=== PATIENT | male | born 1990 | race Hispanic/Latino ===

== ENCOUNTER 2019-01-18 12:01 | Emergency (ER) | payer SELFPAY ==
[2019-01-18 12:03] VITALS: BP 121/71; PULSE 76; RESP 17; TEMP 37; O2SAT 97; BMI 31.0
[2019-01-18 14:11] VITALS: RESP 18
--- NOTE | 2019-01-18 14:33 | RAD_ITS ---
STUDY: X-RAY - RIGHT ELBOW REASON FOR EXAM: Male, 29 years old. Pain and swelling TECHNIQUE: 3 view(s) of the elbow. COMPARISON: None. FINDINGS: Normal visualized humerus, radius and ulna. Normal radiocapitellar and ulnotrochlear articulations. Diffuse soft tissue swelling with induration of the soft tissue suggests a cellulitis RAD/Elbow min 3 Views IMPRESSION: Normal x-ray examination of the elbow. Diffuse soft tissue swelling and induration suggestive of cellulitis Electronically Signed: Sudheer Ruggiero MD at 15:03 EDT , Service support ,
[2019-01-18 15:18] LABS: Absolute Lymphocyte Count 2.82 X10^3/uL (0.83-4.51); Absolute Neutrophil Count 8.1 X10^3/uL (2.0-7.7); Basophil# 0.06 X10^3/uL; Basophil% 0.5 % (0-1); Eosinophils% 2.4 % (0-5); Hematocrit 41.9 % (40-54); Hemoglobin 14.1 g/dL (13.0-16.5); Lymphocyte # 2.82 X10^3/ul (4.0); Lymphocyte % 22.7 % (19-41); Mean Corp Hgb Conc 33.7 g/dL (32-36); Mean Corpuscular Hgb 31.8 pg (27.0-32.0); Mean Corpuscular Volume 94.6 fL (80-94); Mean Platelet Vol. 9.3 fl (6.2-12.0); Monocyte% 8.8 % (0-10); NRBC Flagged by Analyzer 0 % (0-5); Neutrophil # 8.11 X10^3/uL (2.7-7.7); Neutrophil % 65.2 % (47-70); Platelet Count 312 K/mm3 (150-450); RBC Distribution Width CV 13.2 % (11.6-14.6); RBC Distribution Width SD 45.6 fl (35.1-43.9); Red Blood Count 4.43 M/mm3 (4.6-6.2); White Blood Count 12.4 K/mm3 (4.4-11.0)
[2019-01-18 15:33] LABS: Anion Gap 5 (5-15); BUN 8 mg/dL (7-18); BUN/Creat Ratio 10.6 RATIO (10-20); Calcium,Total 9.5 mg/dL (8.5-10.1); Chloride 103 mmol/L (98-107); Creatinine, Serum 0.75 mg/dL (0.70-1.30); EST Glomerular Filtration Rate 130 mL/min (>60); Est Glom Filt Rate - Afr Amer 158 mL/min (>60); Estimated Creatinine Clearance 121.69 ml/min; Glucose 106 mg/dL (74-106); Potassium 3.8 mmol/L (3.5-5.1); Sodium Level 136 mmol/L (136-145)
--- NOTE | 2019-01-18 16:51 | NURSING ---
DR BAUTISTA FOR DR BAILEY
--- NOTE | 2019-01-18 17:02 | ED.DCSUM_ITS ---
History of Present Illness Chief Complaint: Cellulitis Narrative: This is a [id number] male presenting with right elbow pain, redness, and swelling. He had a work-related injury several days ago and went to an outside hospital. He was given intramuscular antibiotics and given a prescription for oral antibiotics but he did not fill them. He returned to work this morning where they noticed his right elbow was draining foul-smelling material and they brought him back here. 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 He declined professional interpretation services. He denies fever or previous similar symptoms. He does not believe there is a chance of foreign body. Past Medical History - Allergies and Home Meds Allergies/Adverse Reactions: Allergies No Known Allergies Allergy (Verified 01/18/19 12:03) Primary Care Physician: Care Physician,No Primary [Primary Care Provider] - Smoking Status: Current some day smoker Review of Systems General: Denies: Chills, Fever, Sweats Eyes: Denies: Visual changes - bilaterally, Diplopia ENT: Denies: Rhinorrhea, Sore throat Cardiovascular: Denies: Chest pain, Palpitations Respiratory: Denies: Dyspnea, Cough, Dyspnea on exertion Gastrointestinal: Denies: Abdominal pain, Nausea, Vomiting, Diarrhea, Melena, Hematochezia Genitourinary: Denies: Dysuria, Hematuria, Frequency Musculoskeletal: Denies: Back pain, Extremity Pain Skin: Reports: Rash, Abscess, Wounds Neurological: Denies: Headache, Weakness, Numbness Physical Exam Vital Signs/Narrative: Vital Signs Resp 01/18/19 14:11 18 General: Well nourished, Well developed, No Acute Distress Head: Normocephalic, Atraumatic Eyes: Perrl, EOMI ENT: Moist mucous membranes, No rhinorrhea Neck: Supple, Nontender Cardiovascular: Regular rate, Regular rhythm, No murmurs Respiratory: No distress, CTA bilaterally, Chest nontender Abdomen: Soft, Nontender, Nondistended, Normal bowel sounds Back: Nontender, Normal Inspection Extremities: Nontender, No edema Skin: Normal color, Rash, - - There is significant erythema and warmth on his right elbow posteriorly into his midshaft forearm. He is somewhat indurated proximally. There is an open area on the back of the elbow that is draining purulent material. There are no streaks of lymphangitis. He has no pain with range of motion at the elbow. Neurological: Alert, Oriented x3, Cranial nerves II-XII grossly intact, Normal Strength, Normal Sensation Psychological: Normal affect, Normal Mood Diagnostic/Tx/Re-eval - Medical Decision Making He appears to have a fairly significant cellulitis but also appears to have an abscess. It appears to be superficial however and does not appear to involve the joint or the olecranon bursa. I obtained verbal informed consent and written and informed consent and performed a bedside incision and drainage using 10 cc of lidocaine without epinephrine locally infiltrated as a field block and then making a 2 cm x 3 cm cruciate incision. I drained approximately 10 cc of foul-smelling purulent material and then irrigated the wound cavity. I then placed approximately 5 cm of quarter inch packing. He tolerated it well. No immediate complications. He has a slight leukocytosis on his laboratory studies but otherwise they are unremarkable. He was given intravenous clindamycin and had no rapid progression of the cellulitis to suggest necrotizing fasciitis. Since he has already been given a dose of intramuscular antibiotics and was sent back in here by corporate care, I do feel he meets criteria for admission and IV antibiotics. ED Disposition - Plan for ED Patient: Disposition: Acute [facility] Diagnosis: Cellulitis of right elbow, Abscess of right upper extremity Referrals: Care Physician,No Primary [Primary Care Provider] -
[2019-01-18 17:11] VITALS: BP 128/78; PULSE 79; RESP 18; TEMP 36.9; O2SAT 98
--- NOTE | 2019-01-18 17:12 | NURSING ---
[address]ILY RT ELBOW ABSCESS AND CELLULITIS
--- NOTE | 2019-01-18 17:12 | NURSING ---
DR BAUTISTA IN ER
--- NOTE | 2019-01-18 17:26 | NURSING ---
WAITING ON DR AZEVEDO TO TALK TO DR BAUTISTA
--- NOTE | 2019-01-18 17:54 | NURSING ---
CALLED [facility]
--- NOTE | 2019-01-18 18:04 | NURSING ---
FACESHEET FAXED TO [facility]
[2019-01-18 21:10] VITALS: PULSE 78; RESP 18
[2019-01-18 21:15] VITALS: O2SAT 98
[2019-01-18 21:48] LABS: M R Staph aureus DNA By PCR POSITIVE (Negative); Probe Check PASS
== END 2019-01-18 21:18 | disposition short-term general hospital (02) ==
LOC: ED 14:27 → PCU 17:06
PROVIDERS: Emergency Provider Emergency Medicine
DX: L02.413 Cutaneous abscess of right upper limb (principal); L03.113 Cellulitis of right upper limb; F17.200 Nicotine dependence, unspecified, uncomplicated
CPT/HCPCS: 10060; 73080; 80048; 85025; 87070; 87077; 87186; 87205; 87641; 96365; 96366; 96367; 99285; J7030; A4216